=== PATIENT | male | born 1965 | race Caucasian/White ===

== ENCOUNTER 2020-12-08 14:06 | Emergency (ER) | payer SELFPAY ==
[~2020-12-08] VITALS: Ht 170.2 cm; Wt 113.0 kg
[2020-12-08] MEDS ORDERED: ASPI81TA47 MT (14:26)
[2020-12-08] MEDS ORDERED: VIAG25 PO (14:26)
[2020-12-08] MEDS ORDERED: LOSA25TA26 PO (14:26)
[2020-12-08] MEDS ORDERED: GLIP5TAB12 PO (14:26)
[2020-12-08] MEDS ORDERED: FAMOTIDINE 20MG/2ML VIAL IV ONE (14:45)
[2020-12-08] MEDS ORDERED: METHYLPREDNISOLONE SOD SUCC 125 MG/2 ML VIAL IV ONE (14:45)
[2020-12-08] MEDS ORDERED: SODIUM CHLORIDE 0.9% 1,000 ML IV ONE (14:45)
[2020-12-08 15:26] LABS: BASOPHILS % 0.5 % (0.0-2.0); EOSINOPHILS % 3.1 % (0.0-5.0); HEMATOCRIT. 46.1 % (42.0-52.0); HEMOGLOBIN. 15.5 g/dL (14.0-18.0); LYMPHOCYTES % 14.8 % (20.0-50.0); MEAN PLATELET VOLUME 7.1 fl (7.4-10.4); NEUTROPHILS % 75.6 % (40.0-76.0); PLATELET 213 x1000/uL (130-400); RED BLOOD CELL COUNT 5.35 mill/uL (4.7-6.1); RED CELL DISTRIBUTION WIDTH 14.2 % (11.6-14.6)
[2020-12-08 15:31] LABS: CHLORIDE 106 mEq/L (98-107)
[2020-12-08] MEDS ORDERED: EPIN0.3P3 IM (17:11)
[2020-12-08] MEDS ORDERED: FAMO-135 MT (17:11)
[2020-12-08] MEDS ORDERED: B50 MT (17:11)
[2020-12-08] MEDS ORDERED: P50 MT (17:11)
[2020-12-08 17:20] VITALS: BP 146/74
== END 2020-12-08 17:27 | disposition home or self-care (01) ==
LOC: ER 14:06 → CANBEDREQ 17:34
DX: T78.3XXA Angioneurotic edema, initial encounter (principal); X58.XXXA Exposure to other specified factors, initial encounter; E11.9 Type 2 diabetes mellitus without complications; I10 Essential (primary) hypertension; Z90.49 Acquired absence of other specified parts of digestive tract; Z98.890 Other specified postprocedural states; Z79.899 Other long term (current) drug therapy
CPT/HCPCS: 36415; 71045; 80053; 85025; 96361; 96374; 96375; 99284; J2930; J3490; J7030